=== PATIENT | male | born 1970 | race Caucasian/White ===

== ENCOUNTER 2023-10-15 07:31 | Outpatient (CLI) | payer BC ==
[2023-10-15] MEDS ORDERED: Iopamidol 370 76% 100 ML VIAL ONE (12:46)
== END 2023-10-15 07:32 | disposition home or self-care (01) ==
LOC: BICCT 07:31
PROVIDERS: ATTEND Surgery
DX: R10.31 Right lower quadrant pain (principal); N13.30 Unspecified hydronephrosis; N20.0 Calculus of kidney
CPT/HCPCS: 74177; Q9967